=== PATIENT | male | born 1965 | race Hispanic/Latino ===

== ENCOUNTER 2016-07-23 14:25 | Inpatient (IN) | payer OTHER ==
[~2016-07-23] VITALS: Ht 177.8 cm; Wt 74.8 kg
--- NOTE | 2016-07-23 14:26 | NUR ---
PATIENT TO EKG JONAH
--- NOTE | 2016-07-23 14:32 | NUR ---
TRIAGE: 51 Y/O MALE SENT IN BY [facility] FOR C/O MIDSTERNAL CHEST PAIN 12/14 - PER URGENT CARE, EKG WAS NEGATIVE BUT HE REQUIRED ADDITIONAL WORK UP. REPORTS SLIGHT SOB AT PRESENT. DENIES ABDOMINAL PAIN. HISTORY OF INTERMITTENT CHEST PAINS, NEGATIVE STRESS TEST.
--- NOTE | 2016-07-23 14:57 | ED CARDIAC/CP/PALPITATIONS ---
History of Present Illness General Chief Complaint: Chest Pain Stated Complaint: CHEST PAIN Source: patient Exam Limitations: no limitations Allergies Coded Allergies: NO KNOWN ALLERGIES (07/23/16) Reconcile Medications Atorvastatin Calcium 40 MG TABLET 1 TAB PO DAILY CHOLESTEROL (Reported) Metformin HCl 850 MG TABLET 1 TAB PO DAILY DM (Reported) Telmisartan 20 MG TABLET 1 TAB PO DAILY HEART (Reported) Triage Note: TRIAGE: 51 Y/O MALE SENT IN BY [facility] FOR C/O MIDSTERNAL CHEST PAIN 12/14 - PER URGENT CARE, EKG WAS NEGATIVE BUT HE REQUIRED ADDITIONAL WORK UP. REPORTS SLIGHT SOB AT PRESENT. DENIES ABDOMINAL PAIN. HISTORY OF INTERMITTENT CHEST PAINS, NEGATIVE STRESS TEST. Triage Nurses Notes Reviewed? yes Onset: Abrupt Duration: constant Timing: single episode today Quality/Severity: severe, pressure Location: substernal Radiation: no radiation Activities at Onset: none Nitro Today/Relief: no nitro taken today Aspirin Today: no aspirin today HPI: Patient is a 51-year-old male with a past medical history of type 2 diabetes, hypertension and hyperlipidemia and chronic dysphasia or patient has received multiple endoscopies in the past who states that recently his dysphagia (most likely esophageal stricture) has worsened however today patient had since 6:30 AM substernal chest pain and pressure. Patient states that he was not eating or drinking or swallowing anything at that time. Patient has been able tolerate by mouth intake with no change in symptoms. Patient does state that approximately 3 years ago he received cardiac stress test with unremarkable findings. Patient is an every day smoker however denies any other illicit drug use. Patient just returned from the [facility] approximately 1 week ago. Patient denies any history of DVT or PE denies any leg swelling denies any hemoptysis fever chills nausea vomiting abdominal pain. Patient does state that the onset of his symptoms this morning he was diaphoretic however this has resolved (JOSE DAVID DELGADO) Vital Signs & Intake/Output Vital Signs & Intake/Output Vital Signs Date Time Temp Pulse Resp B/P Pulse O2 O2 Flow FiO2 Ox Delivery Rate 07/23 1751 92 14 154/94 98 Room Air Room Air 07/23 1719 98.1 97 16 141/86 98 Room Air Room Air 07/23 1621 84 136/81 07/23 1535 106 155/84 07/23 1530 97 Room Air Room Air 07/23 1525 105 149/84 07/23 1521 91 14 167/90 98 Room Air 07/23 1432 98.0 96 18 160/88 98 Room Air Room Air Past History Travel History Traveled to [place] past 21 day No Medical History Any Pertinent Medical History? see below for history Cardiovascular: hypertension, hyperlipidemia Endocrine: diabetes Influenza Vaccine: 05/31/12 Surgical History Surgical History: non-contributory Psychosocial History Who do you live with Family What is your primary language Albanian Tobacco Use: Never used Family History Hx Contributory? No (JOSE DAVID DELGADO) Review of Systems Review of Systems Constitutional: Reports: no symptoms. EENTM: Reports: no symptoms. Respiratory: Reports: see HPI. Cardiovascular: Reports: see HPI, chest pain. GI: Reports: no symptoms. Genitourinary: Reports: no symptoms. Musculoskeletal: Reports: no symptoms. Skin: Reports: no symptoms. Neurological/Psychological: Reports: no symptoms. Hematologic/Endocrine: Reports: no symptoms. Immunologic/Allergic: Reports: no symptoms. All Other Systems: Reviewed and Negative (JOSE DAVID DELGADO) Physical Exam Physical Exam General Appearance: no apparent distress, alert, comfortable Head: atraumatic Eyes: Right: normal appearance, PERRL, EOMI. Ears, Nose, Throat: normal pharynx, normal ENT inspection, hearing grossly normal Neck: normal inspection, supple Respiratory: normal breath sounds, chest non-tender, no respiratory distress Cardiovascular: regular rate/rhythm Gastrointestinal: normal bowel sounds, soft, non-tender Back: normal inspection Extremities: normal inspection, normal capillary refill, normal range of motion, no edema Skin: intact, normal color, warm/dry Lymphatic: no anterior cervical jeremy Core Measures ACS in differential dx? Yes ASA ordered for poss ACS? Yes-ordered Severe Sepsis Present: No Septic Shock Present: No (JOSE DAVID DELGADO) Progress Differential Diagnosis: AMI, aortic dissection, atrial fibrillation, cholecystitis, CHF/pulm edema, costochondritis, hyperkalemia, hypovolemia, hyperthyroid, hyperventilation, intracranial hemorrhage, musculoskeletal pain, myocarditis, pancreatitis, pericarditis, pneumonia, pneumothorax, PSVT, pulmonary embolism, PUD/GERD, PVCs/PACs, respiratory failure, sepsis, unstable angina, V-fib/V-Tach, WPW syndrome Diagnostic Imaging: Viewed by Me: Radiology Read. CXR Impression: no acute abnormality, no infiltrates Initial ED EKG: SINUS RHYTHM NOTED AT 83 BEATS PER MINUTE lvh Comments: PATIENT: MELISSA GONZALEZ PRESENT AGE: 51 PATIENT ACCOUNT NO: [id number] : 66 LOCATION: [facility] ORDERING PHYSICIAN: JOSE DAVID LLAMAS SERVICE DATE: 07/23/16 EXAM TYPE: CAT - CTA CHEST-AORTIC DISSECTION EXAMINATION: CTA CHEST WITH CONTRAST CLINICAL INFORMATION: Chest pain. Assess for dissection. COMPARISON: None TECHNIQUE: Multidetector CT scan of the chest performed following uneventful injection of 120 mL of Optiray 350. Multiplanar reconstructions including MIP imaging. DLP: 776 mGy-cm FINDINGS: No pulmonary nodules or masses. No parenchymal disease. No pleural or pericardial abnormality. On the nonenhanced study, the thoracic aorta is normal. There is moderate coronary atherosclerosis. No evidence for an intramural hematoma. Following enhancement, there is normal opacification of the aorta. There is no evidence for any dissection or penetrating atherosclerotic ulcer of the aorta. There is some flow-related artifact at the origin of the innominate artery. No mediastinal mass or hematoma. Pulmonary arteries are normal. There is no evidence of any right ventricular strain. Moderate gynecomastia. Diffuse changes of hepatic steatosis. No focal lesion. Nonspecific thickening of the distal esophagus noted circumferentially. IMPRESSION: 1. No evidence for any dissection, aneurysm, or acute aortic pathology. 2. Diffuse hepatic steatosis. 3. Thickening of the distal esophagus which may be on the basis of esophagitis. Correlate clinically. 4. Relatively pronounced coronary atherosclerosis. DICTATED BY: DAYTON ROMAN MD DATE/TIME DICTATED:07/23/161753 ROLLER MAN:MELODIE PATIENT: MELISSA GONZALEZ PRESENT AGE: 51 PATIENT ACCOUNT NO: [id number] : 66 LOCATION: [facility] ORDERING PHYSICIAN: JOSE DAVID LLAMAS SERVICE DATE: 07/23/16163 EXAM TYPE: RAD - XRY-CHEST XRAY, PA AND LATERAL EXAMINATION: XR CHEST CLINICAL INFORMATION: Chest pain. COMPARISON: None TECHNIQUE: 2 views of the chest were obtained. FINDINGS: No significant abnormality is noted involving the heart, lungs, mediastinum, bony thorax or soft tissues. IMPRESSION: Unremarkable examination. (RAHEEM LLAMAS,JOSE DAVID) Plan of Care: Orders Procedure Date/time Status Heart Healthy Diet 07/24 D Active Nothing by Mouth 07/24 B Active Saline Lock 07/[address] in observation 07/23 1913 Active Misc Message 07/23 1913 Active ED Holding Orders 07/23 1913 Active Patient Data 07/23 1913 Active Vital Signs 07/23 1913 Active Code Status 07/23 1913 Active Telemetry/Gusset Maker 07/23 1513 Active TROPONIN LEVEL 07/23 151 Complete D-DIMER 07/23 151 Complete COMPREHENSIVE METABOLIC PANEL 07/23 151 Complete CBC WITHOUT DIFFERENTIAL 07/23 151 Complete EKG 07/23 1426 Active Laboratory Tests 07/23/16 1604: Anion Gap 9, Estimated GFR > 60, BUN/Creatinine Ratio 16.0, Glucose 143 H, Calcium 9.7, Total Bilirubin 0.6, AST 27, ALT 58, Alkaline Phosphatase 65, Troponin I < 0.01, Total Protein 6.9, Albumin 4.1, Globulin 2.8, Albumin/ Globulin Ratio 1.5 07/23/16 1521: D-Dimer < 200, CBC w Diff NO MAN DIFF REQ, RBC 4.77, MCV 94.6 H, MCH 31.9 H, RDW 12.9, MPV 7.3 L, Gran % 67.2, Lymphocytes % 18.5 L, Monocytes % 12.8 H, Eosinophils % 1.5, Basophils % 0 L, Absolute Granulocytes 6.1, Absolute Lymphocytes 1.7, Absolute Monocytes 1.2 H, Absolute Eosinophils 0.1, Absolute Basophils 0, PUBS MCHC 33.7 Patient currently is in no apparent distress however is complaining of substernal 8 out of 10 chest heaviness. Patient's EKG was normal sinus rhythm patient was given 2 doses of sublingual nitroglycerin however he had no change in symptoms. D-dimer currently is pending patient plan will be to receive second set of troponin 07/23/2016 5:04:31 PM patient still resting comfortably however he states he has no change in symptoms. D-dimer was unremarkable. Nitroglycerin placed was administered 07/23/2016 5:19:01 PM patient had no change in symptoms with multiple nitroglycerin which morphine was then administered Patient had no change of symptoms after drinking fluid and I do not suspect patient have substernal pressure and pain from HIS ESOPHAGAEL HISTORY Patient did have morphine which improved his symptoms however currently is noted to be substernal pressure 3 out of 10. Discussed admission with Dr. Streeter who agrees with telemetry observation Discussed disposition and plan and was initially patient and family were hesitant however then agreed for admission. Discussed admission with Dr. Esqueda who evaluated patient and agrees (JOSE DAVID DELGADO) Departure Departure Disposition: STILL A PATIENT Condition: Stable Clinical Impression Primary Impression: Chest pain Referrals: JEFFREY VALDIVIA,ROVERTO Monroy (PCP/Family) Departure Forms: Customer Survey General Discharge Information Observation Note Spoke With: ALISTAIR VALDIVIA PhD,MARIA ESTHER Isidro Physician Advisor Notified: BROOKLYNN VALDIVIA,SANJAY Monroy Place Patient In: Non-ED OBS Care Area Rationale for Observation: My rational for observation is as follows [discussed patient with Dr. Streeter who agrees with telemetry observation was patient has multiple risk factors and chest pain. Patient requires cardiology consultation, telemetry observation repeat labs repeat EKG.]. (JOSE DAVID DELGADO) PA/ELEMENTARY SCHOOL PROFESSIONAL Co-Sign Statement Statement: ED Attending supervision documentation- [x] I saw and evaluated the patient. I have also reviewed all the pertinent lab results and diagnostic results. I agree with the findings and the plan of care as documented in the PA's/ELEMENTARY SCHOOL PROFESSIONAL's documentation. [] I have reviewed the ED Record and agree with the PA's/ELEMENTARY SCHOOL PROFESSIONAL's documentation. [] Additions or exceptions (if any) to the PAs/ELEMENTARY SCHOOL PROFESSIONAL's note and plan are summarized below: [] (GONZALO VALDIVIA,ROSI Cummings) Critical Care Note Critical Care Note Critical Care Time: 30-74 min (JOSE DAVID DELGADO)
--- NOTE | 2016-07-23 15:20 | NUR ---
FIRST NITRO GIVEN, C/O PRESSURE MID STERNUM 7/10 ON PAIN SCALE
[2016-07-23] MEDS ORDERED: METFORMIN HCL850 M1 PO (15:22)
[2016-07-23] MEDS ORDERED: ATORVASTATIN CA40 M1 PO (15:22)
[2016-07-23] MEDS ORDERED: TELMISARTAN PO (15:23)
--- NOTE | 2016-07-23 15:28 | NUR ---
second nitro administered at this time as per MURIEL Chandler's instruction. BP 148/84. Midsternal chest pressure remains 7/10. Will continue to monitor.
[2016-07-23 15:37] LABS: ABSOLUTE BASOPHIL COUNT 0 /CUMM (0.0-0.2); ABSOLUTE EOSINOPHIL COUNT 0.1 /CUMM (0.0-0.7); ABSOLUTE GRANULOCYTE CT 6.1 /CUMM (1.4-6.5); ABSOLUTE LYMPH COUNT 1.7 /CUMM (1.2-3.4); ABSOLUTE MONOCYTE COUNT 1.2 /CUMM (0.10-0.60); BASOPHIL % 0 % (0.0-2.0); EOSINOPHIL % 1.5 % (0-5); GRANULOCYTE % 67.2 % (42.2-75.2); HEMATOCRIT 45.1 % (42-52); MEAN CORPUSCULAR HGB 31.9 PG (27.0-31.0); MEAN CORPUSCULAR HGB CONC 33.7 G/DL (33.0-37.0); MEAN CORPUSCULAR VOLUME 94.6 FL (80.0-94.0); MEAN PLATELET VOLUME 7.3 FL (7.4-10.4); PLATELET COUNT 167 /CUMM (130-400); RBC DISTRIBUTION WIDTH 12.9 % (11.5-14.5); RED BLOOD CELL CT 4.77 /CUMM (4.70-6.10); WHITE BLOOD CELL COUNT 9.1 /CUMM (4.8-10.8)
--- NOTE | 2016-07-23 15:53 | NUR ---
LAB CALLED AND NEEDS A REDRAW OF THE SST. MST NOTIFIED.
--- NOTE | 2016-07-23 16:06 | NUR ---
SST REDRAWN AND SENT BY THIS MST
--- NOTE | 2016-07-23 17:01 | RADIOLOGY REPORT ---
EXAMINATION: XR CHEST CLINICAL INFORMATION: Chest pain. COMPARISON: None TECHNIQUE: 2 views of the chest were obtained. FINDINGS: No significant abnormality is noted involving the heart, lungs, mediastinum, bony thorax or soft tissues. IMPRESSION: Unremarkable examination.
--- NOTE | 2016-07-23 17:03 | NUR ---
pt continues to c/o chest pressure 7/10. 1g nitropaste applied to chest at this time as per emar. patient remains sinus rhythm on monitor. will continue to monitor patient for symptoms. family remains at bedside for emotional support.
--- NOTE | 2016-07-23 17:50 | NUR ---
PATIENT TO AND FROM CT SCAN AT THIS TIME. RETURNED TO CARDIAC MONTIOR. BP 154/94. HEART RATE 90. NITROPASTE REMAINS ON CHEST. PT REPORTS THAT CHEST PRESSURE REMAINS 7/10, UNCHANGED.
--- NOTE | 2016-07-23 18:25 | CT SCAN REPORT ---
EXAMINATION: CTA CHEST WITH CONTRAST CLINICAL INFORMATION: Chest pain. Assess for dissection. COMPARISON: None TECHNIQUE: Multidetector CT scan of the chest performed following uneventful injection of 120 mL of Optiray 350. Multiplanar reconstructions including MIP imaging. DLP: 776 mGy-cm FINDINGS: No pulmonary nodules or masses. No parenchymal disease. No pleural or pericardial abnormality. On the nonenhanced study, the thoracic aorta is normal. There is moderate coronary atherosclerosis. No evidence for an intramural hematoma. Following enhancement, there is normal opacification of the aorta. There is no evidence for any dissection or penetrating atherosclerotic ulcer of the aorta. There is some flow-related artifact at the origin of the innominate artery. No mediastinal mass or hematoma. Pulmonary arteries are normal. There is no evidence of any right ventricular strain. Moderate gynecomastia. Diffuse changes of hepatic steatosis. No focal lesion. Nonspecific thickening of the distal esophagus noted circumferentially. IMPRESSION: 1. No evidence for any dissection, aneurysm, or acute aortic pathology. 2. Diffuse hepatic steatosis. 3. Thickening of the distal esophagus which may be on the basis of esophagitis. Correlate clinically. 4. Relatively pronounced coronary atherosclerosis.
--- NOTE | 2016-07-23 18:56 | NUR ---
PT REPORTING MILD RELIEF OF PAIN TO A 3/10. PA RAHEEM AT BEDSIDE TO DISCUSS POC
--- NOTE | 2016-07-23 19:14 | NUR ---
PENDING ADMISSION. NURSING [facility] CALLED FOR BOXED LUNCH
--- NOTE | 2016-07-23 19:32 | NUR ---
PT'S FAMILY PROVIDED PT WITH DINNER FROM [facility]
--- NOTE | 2016-07-23 20:00 | NUR ---
PT REQUESTED TO AMBULATE TO RESTROOM TO VOID. PT INFORMED THAT USING URINAL WOULD BE SAFER AT THIS TIME. PT STOOD TO USE URINAL. PT'S HEART RATE INCREASED FROM 105 TO 121. PT COMPLAINED OF MILD DYSPNEA ON EXERTION WHEN STANDING.
--- NOTE | 2016-07-23 20:10 | History & Physical ---
JANNETTE CENTENO MD 07/23/162009: General Information and HPI MD Statement: I have seen and personally examined MELISSA SIMON and documented this H&P. The patient is a 51 year old M who presented with a patient stated chief complaint of chest pain. Source of Information: patient, family, old records Exam Limitations: no limitations History of Present Illness: Mr. Simon is a pleasant 51 year old gentleman with PMH type 2 diabetes mellitus on metformin, HTN, HLD, chronic dysphagia s/p dilatation in 2013, history of treated sho esophagitis, treated H. Pylori infection and tobacco abuse who presents with chief complaint of chest pain. Patient reports that this morning he was watching TV and suddenly developed mild chest pain. This chest pain continued to increase in intensity throughout the morning and promted him to present to an urgent care facility aroud 1 PM this afternoon. The pain at this time was rated an 8/10, substernal, non-radiating and described as a pressure. He reported a similar episode of chest pain about three years ago at which time he had a stress test performed. Following the stress test, patient reports he was started on a blood thinner which he has since been taken off of; he does not know the exact results of the test. Patient was transferred from the urgent care facility to [facility] for further workup at which time he received 2 sublingual nitroglycerin that did not decrease the pain followed by a nitro patch which helped slightly. Associated symptoms include shortness of breath and diaphoresis. Of note, patient has recently returned from a trip to the [facility] and subsequently noted a return of his dysphagia that occurs only on drinking liquids. The chest pain he experiences is different in nature from the dysphagia symptoms. Social history is significant for tobacco abuse since the age of 19 with 1/2 pack per day. He drinks about 2 Michelob Ultras a day. He denies illicit drug use. He lives at home with his . His trouble shooting mechanic is Dr. Grubbs in [place]. The last endoscopy he had was in 2013 at which time patient reports he had a dilatation of his stricture and has been dysphagia free since that time until his return from the [facility]. Allergies/Medications Allergies: Coded Allergies: NO KNOWN ALLERGIES (07/23/16) Home Med list Atorvastatin Calcium 40 MG TABLET 1 TAB PO DAILY CHOLESTEROL (Reported) Metformin HCl 850 MG TABLET 1 TAB PO DAILY DM (Reported) Telmisartan 20 MG TABLET 1 TAB PO DAILY HEART (Reported) Compliance With Home Meds: GOOD Past History Travel History Traveled to [place] past 21 day No Medical History Cardiovascular: hypertension, hyperlipidemia Gastrointestinal: Chronic dysphagia Endocrine: diabetes Influenza Vaccine: 05/31/12 Surgical History Surgical History: non-contributory Past Family/Social History Psychosocial History Where do you live? Home Who Do You Live With? spouse Services at Home: None Smoking Status: Current Everyday Smoker ETOH Use: occasional use Illicit Drug Use: denies illicit drug use Living Will? no Functional Ability ADLs Independent: dressing, eating, toileting, bathing. Ambulation: independent IADLs Independent: shopping, housework, finances, food prep, telephone, transportation , medication admin. 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 Denies: chills, fever, malaise, weakness. EENTM: Denies: blurred vision, visual changes, hearing changes, nasal congestion. Cardiovascular: Reports: chest pain. Denies: edema, orthopena, palpitations, peripheral edema, syncope. Respiratory: Reports: short of breath. Denies: cough, sputum production, wheezing. GI: Denies: abdominal pain, nausea, vomiting. Genitourinary: Denies: dysuria, hematuria. Musculoskeletal: Denies: back pain, joint pain. Skin: Denies: erythema, rash. Neurological/Psychological: Denies: confusion, headache, paresthesia. Hematologic/Endocrine: Denies: bruising, bleeding. Immunologic/Allergic: Denies: splenectomy. Exam & Diagnostic Data Last 24 Hrs of Vital Signs/I&O Vital Signs Date Time Temp Pulse Resp B/P Pulse O2 O2 Flow FiO2 Ox Delivery Rate 07/23 2232 97.8 96 16 135/73 07/23 2224 97.8 96 16 135/73 95 Room Air 07/23 1959 105 16 132/84 98 Room Air 07/23 1751 92 14 154/94 98 Room Air Room Air 07/23 1719 98.1 97 16 141/86 98 Room Air Room Air 07/23 1621 84 136/81 07/23 1535 106 155/84 07/23 1530 97 Room Air Room Air 07/23 1525 105 149/84 07/23 1521 91 14 167/90 98 Room Air 07/23 1432 98.0 96 18 160/88 98 Room Air Room Air Intake & Output 07/23 1600 07/23 0800 07/23 0000 Intake Total Output Total Balance Patient 165 lb Weight Physical Exam General Appearance Alert, Oriented X3, Cooperative, No Acute Distress Skin No Rashes, No Significant Lesion HEENT Atraumatic, PERRLA, EOMI, Mucous Membr. moist/pink Neck Supple, +2 Carotid Pulse wo Bruit Lymphatic Cervical nl Cardiovascular Normal S1, Normal S2, No Murmurs, Tachycardic Lungs Clear to Auscultation, Normal Air Movement Abdomen Normal Bowel Sounds, Soft, No Tenderness, No Hepatospenomegaly, No Masses Neurological Normal Speech, Strength at 5/5 X4 Ext, Normal Tone Extremities No Clubbing, No Cyanosis, No Edema, No Tenderness/Swelling Vascular Pulses Symmetrical Last 24 Hrs of Labs/Jose C: Laboratory Tests 07/23/16 2224: Troponin I Pending 07/23/16 1604: Anion Gap 9, Estimated GFR > 60, BUN/Creatinine Ratio 16.0, Glucose 143 H, Calcium 9.7, Total Bilirubin 0.6, AST 27, ALT 58, Alkaline Phosphatase 65, Troponin I < 0.01, Total Protein 6.9, Albumin 4.1, Globulin 2.8, Albumin/ Globulin Ratio 1.5 07/23/16 1521: D-Dimer < 200, CBC w Diff NO MAN DIFF REQ, RBC 4.77, MCV 94.6 H, MCH 31.9 H, RDW 12.9, MPV 7.3 L, Gran % 67.2, Lymphocytes % 18.5 L, Monocytes % 12.8 H, Eosinophils % 1.5, Basophils % 0 L, Absolute Granulocytes 6.1, Absolute Lymphocytes 1.7, Absolute Monocytes 1.2 H, Absolute Eosinophils 0.1, Absolute Basophils 0, PUBS MCHC 33.7 Diagnostic Data EKG Results NSR HR 83, QTC 409, T wave inversions in III, aVF. Likely early repolarization in V2-V4. CXR Results IMPRESSION: Unremarkable examination. Other Results Chest CTA: IMPRESSION: 1. No evidence for any dissection, aneurysm, or acute aortic pathology. 2. Diffuse hepatic steatosis. 3. Thickening of the distal esophagus which may be on the basis of esophagitis. Correlate clinically. 4. Relatively pronounced coronary atherosclerosis. Assessment/Plan Assessment: Mr. Simon is a pleasant 51 year old gentleman with PMH type 2 diabetes mellitus on metformin, HTN, HLD, chronic dysphagia s/p dilatation in 2013, history of treated sho esophagitis, treated H. Pylori infection and tobacco abuse who presents with chief complaint of substernal chest pain. This chest pain started earlier this morning, increased in intensity to reach a maximum of 8/10 pain that was described as a pressure. This pain did not radiate but was associated with diaphoresis and shortness of breath; it was minimally improved with nitrogylcerin. In the ED: Vital signs showed T 98.1, HR 97, RR 16, BP 141/86 and O2 saturation of 98% on room air. CBC was unremarkable. BEP was significant for Na 134, BUN 8, Cre 0.5, Glu 143, trop <0.01, normal AST/ALT and DDimer <200. CXR was unremarkable. CTA showed no dissection, aneurysm, or acute aortic pathology. Diffuse hepatic steatosis. Thickening of distalesophagus which may represent esophagitis. Coronary atherosclerosis. EKG showed NSR HR 83, QTC 409, T wave inversions in III, aVF. Likely early repolarization in V2-V4. Patient is admitted to the telemetry floor and the following is the management: 1. Chest pain, rule out ACS * Patient given aspirin 325 mg PO and nitroglycerin in the emergency room * Continuous telemetry monitoring * First troponin <0.01, EKG did show early repolarization in V2-V4 and T wave inversion III, aVF. * DDimer low, PE unlikely * NPO tonight for possible stress test tomorrow * Echocardiogram ordered, follow up results * Hold off on nitrogylcerin for now * Follow up cardiology recommendations * IV morphine for severe pain, tylenol for mild 2. Diabetes mellitus * Hold metformin * Accuchecks TIDAC/HS * Novolog sliding scale 3. HTN, HLD * Losartan 50 mg PO daily * Lipitor 40 mg PO daily 4. Tobacco abuse * Patient counseled on tobacco cessation * Hold off on nicotine patch for now in setting of rule out ACS FULL CODE DVTP: SC Lovenox Mild to severe pain pathway Heart Healthy Diet As Ranked By This Provider Problem List: 1. Chest pain 2. HTN (hypertension) 3. HLD (hyperlipidemia) 4. Type 2 diabetes mellitus Core Measures/Miscellaneous Acute Coronary Syndrome ACS Diagnosis: No Cerebrovascular Accident CVA/TIA Diagnosis: No Congestive Heart Failure CHF Diagnosis: No Venous Thromboembolism VTE Risk Factors: Acute medical illness, Age > 40, Smoking [facility] prophylaxis d/t: No contraindications No VTE Pharm Prophylaxis d/t: No contraindications VTE Diagnosis: No VTE Type: NONE VTE Confirmed by (Test): NONE Severe Sepsis Severe Sepsis Present: No Septic Shock Septic Shock Present: No Miscellaneous Documentation Attending Case Discussed With: ALISTAIR VALDIVIA PhD,MARIA ESTHER Isidro Primary Care Physician: ROVERTO MURPHY MD Patient sees these Specialists WILL[facility] Rene [place]. Level of Patient Care: Telemetry SHAHRZAD VALDIVIA,[facility] 07/23/16 2303: Resident Review Statement Resident Statement: examined this patient, discussed with internal combustion engine subassembler, agreed with internal combustion engine subassembler Other Findings: 51 y/o M with PMH of HTN, HLD, DMT2, longstanding esophagitis 2/2 GERD s/p several endoscopies (last in 2013 s/p dilatation of lower esophageal stricture) who presents to the ED with chest pain since 630AM this morning. He recently came back from a vacation to the [facility]. He reports having substernal chest pain 8/10 since this AM. He thought this could be related to his esophagitis and he drank some water, which did not help with his pain. He went to [facility] at noon. EKG done was found to be abnormal and the patient was sent to the ED for further management. He reports having a similar episode 3 years ago, for which he went to a PCP. He was asked to see a membership counselor and underwent a stress test which was reportedly negative. Vitals: Stable Labs: Stable. Trop x 1 negative Imaging: CXR WNL, CTA negative for PE, shows extensive coronary atherosclerosis EKG: Early repolarization changes in V2,V3 Problem List: Chest pain 2/2 Esophagitis vs ACS Hypertension Hyperlipidemia Diabetes Plan: * Admit to telemetry * Check trops and EKG x 3 * Continue other home medications except Metformin * Fingersticks and Novolog sliding scale * ECHO * Possible Stress test in the AM * DVT PPx: SubQ lovenox * Pain Pathway: Tylenol PRN * Code Status: Full Code
--- NOTE | 2016-07-23 21:27 | NUR ---
HOUSE STAFF AT BEDSIDE FOR EVAL
--- NOTE | 2016-07-23 22:26 | NUR ---
REPEAT TROPONIN DRAWN AND SENT BY THIS [facility]
--- NOTE | 2016-07-23 22:53 | NUR ---
PT MEDICATED WITH COZAAR 50MG, LIPITOR 40MG, AND TYLENOL 650MG PO
--- NOTE | 2016-07-23 23:09 | NUR ---
FINGERSTICK GLUCOSE LEVEL READING 204
--- NOTE | 2016-07-23 23:12 | NUR ---
REPORT CALLED TO DAGOBERTO WORTHY. PT ASSIGNED TO ROOM [id number]
--- NOTE | 2016-07-23 23:38 | NUR ---
PT TRANSPORTED TO FLOOR BY THIS RN AND PRINCE BENNETT WITHOUT INCIDENT
[2016-07-23 23:45] VITALS: BP 138/84
[2016-07-24 05:01] LABS: ABSOLUTE BASOPHIL COUNT 0 /CUMM (0.0-0.2); ABSOLUTE EOSINOPHIL COUNT 0.2 /CUMM (0.0-0.7); ABSOLUTE GRANULOCYTE CT 6.6 /CUMM (1.4-6.5); ABSOLUTE LYMPH COUNT 2.1 /CUMM (1.2-3.4); ABSOLUTE MONOCYTE COUNT 1.1 /CUMM (0.10-0.60); BASOPHIL % 0.1 % (0.0-2.0); GRANULOCYTE % 65.4 % (42.2-75.2); MEAN CORPUSCULAR HGB CONC 33.7 G/DL (33.0-37.0); MEAN CORPUSCULAR VOLUME 94.7 FL (80.0-94.0); MEAN PLATELET VOLUME 8.1 FL (7.4-10.4); PLATELET COUNT 151 /CUMM (130-400); RBC DISTRIBUTION WIDTH 12.7 % (11.5-14.5); RED BLOOD CELL CT 4.54 /CUMM (4.70-6.10)
[2016-07-24 07:00] VITALS: BP 142/80
--- NOTE | 2016-07-24 07:26 | PN- Housestaff ---
Subjective Follow-up For: Chest pain Hiccups Complaints: Continoues to have epigastric and chest pain Tele-Events Since Last Visit: Sinus rhythm 72 to 77 bpm no overnight events Subjective: Reviewed the patient lying comfortably on the bed he reports to continue to have chest pain overnight. He has been having a lot of hiccups and is strongly think that the pain is more associated with his esophagus rather than his heart. He denies any palpitation or shortness of breath Review of Systems Constitutional: Denies: chills, fever. Cardiovascular: Reports: see HPI, chest pain. Denies: palpitations. Respiratory: Denies: cough, short of breath. Gastrointestinal: Reports: nausea (repetitive hiccups). Genitourinary: Denies: no symptoms. Musculoskeletal: Denies: no symptoms. Skin: Reports: dryness. Objective Last 24 Hrs of Vital Signs/I&O Vital Signs Date Time Temp Pulse Resp B/P Pulse O2 O2 Flow FiO2 Ox Delivery Rate 07/24 0800 Room Air 07/24 0700 98.7 76 16 142/80 98 Room Air 07/23 2345 98.8 79 18 138/84 97 Room Air 07/23 2330 Room Air 07/23 2253 97.8 07/23 2232 97.8 96 16 135/73 07/23 2224 97.8 96 16 135/73 95 Room Air 07/23 1959 105 16 132/84 98 Room Air 07/23 1751 92 14 154/94 98 Room Air Room Air 07/23 1719 98.1 97 16 141/86 98 Room Air Room Air 07/23 1621 84 136/81 07/23 1535 106 155/84 07/23 1530 97 Room Air Room Air 07/23 1525 105 149/84 07/23 1521 91 14 167/90 98 Room Air 07/23 1432 98.0 96 18 160/88 98 Room Air Room Air Intake & Output 07/24 1600 07/24 0800 07/24 0000 Intake Total 0 Output Total Balance 0 Intake, IV 0 Intake, Oral 0 Number 0 Bowel Movements Patient 165 lb Weight Physical Exam General Appearance: Alert, Oriented X3, Cooperative, No Acute Distress Skin: No Rashes HEENT: Atraumatic, Mucous Membr. moist/pink Neck: Supple, No JVD Cardiovascular: Regular Rate, Normal S1, Normal S2, No Murmurs Lungs: Clear to Auscultation, Normal Air Movement Abdomen: Normal Bowel Sounds, Soft, No Tenderness Neurological: Normal Speech, Normal Tone Extremities: No Clubbing, No Cyanosis, No Edema Current Medications: Current Medications Sig/[place] Start time Last Medication Dose Route Stop Time Status Admin Acetaminophen 0 .STK-MED ONE 07/23 2242 DC PO Acetaminophen 650 MG Q6P PRN 07/23 2200 AC 07/24 PO 1110 Aspirin 325 MG ONCE ONE 07/23 1545 DC 07/23 PO 07/23 1546 1538 Aspirin 0 .STK-MED ONE 07/23 1539 DC PO Atorvastatin Calcium 40 MG DAILY 07/23 2153 AC 07/24 PO 1109 Calcium 600 MG ONCE ONE 07/24 0430 DC 07/24 PO 07/24 0431 0430 Enoxaparin Sodium 40 MG DAILY 07/24 1000 AC 07/24 SC 1111 Insulin Aspart 0 TIDAC 07/24 0800 AC SC Losartan Potassium 0 .STK-MED ONE 07/23 2210 DC PO Losartan Potassium 50 MG DAILY 07/23 2153 AC 07/23 PO 2232 Morphine Sulfate 2 MG Q8P PRN 07/23 220 AC IV Morphine Sulfate 2 MG ONCE ONE 07/23 1730 DC 07/23 IV 07/23 1731 1735 Morphine Sulfate 0 .STK-MED ONE 07/23 1724 DC .ROUTE Nitroglycerin 0 .STK-MED ONE 07/23 2208 DC TOP Nitroglycerin 0.5 GM Q8 07/23 2199 DC TOP Nitroglycerin 0 .STK-MED ONE 07/23 1700 DC TOP Nitroglycerin 1 GM ONCE ONE 07/23 1645 DC 07/23 TOP 07/23 1646 1706 Nitroglycerin 0.4 MG ONCE ONE 07/23 1530 DC 07/23 SL 07/23 1531 1528 Nitroglycerin 0 .STK-MED ONE 07/23 1518 DC SL Nitroglycerin 0.4 MG ONCE ONE 07/23 1515 DC 07/23 SL 07/23 1516 1520 Ondansetron HCl 4 MG ONCE ONE 07/24 0045 DC 07/24 IV 07/24 0046 0103 Patient Medication 1 UNIT ONE NR 07/23 2199 DC Teaching ED 07/23 2300 Patient Medication 1 UNIT ONE NR 07/23 2199 PA Teaching ED 07/23 2230 Patient Medication 1 UNIT ONE NR 07/23 2199 [facility] ED 07/23 2229 Last 24 Hrs of Lab/Jose C Results Last 24 Hrs of Labs/Mics: Laboratory Tests 07/24/16 0410: Troponin I 0.01 07/24/16 0410: Anion Gap 8, Estimated GFR > 60, BUN/Creatinine Ratio 10.0, CBC w Diff NO MAN DIFF REQ, RBC 4.54 L, MCV 94.7 H, MCH 32.0 H, RDW 12.7, MPV 8.1, Gran % 65.4, Lymphocytes % 21.1, Monocytes % 11.4 H, Eosinophils % 2.0, Basophils % 0.1, Absolute Granulocytes 6.6 H, Absolute Lymphocytes 2.1, Absolute Monocytes 1.1 H, Absolute Eosinophils 0.2, Absolute Basophils 0, PUBS MCHC 33.7 07/23/16 2224: Troponin I < 0.01 07/23/16 1604: Anion Gap 9, Estimated GFR > 60, BUN/Creatinine Ratio 16.0, Glucose 143 H, Calcium 9.7, Total Bilirubin 0.6, AST 27, ALT 58, Alkaline Phosphatase 65, Troponin I < 0.01, Total Protein 6.9, Albumin 4.1, Globulin 2.8, Albumin/ Globulin Ratio 1.5 07/23/16 1521: D-Dimer < 200, CBC w Diff NO MAN DIFF REQ, RBC 4.77, MCV 94.6 H, MCH 31.9 H, RDW 12.9, MPV 7.3 L, Gran % 67.2, Lymphocytes % 18.5 L, Monocytes % 12.8 H, Eosinophils % 1.5, Basophils % 0 L, Absolute Granulocytes 6.1, Absolute Lymphocytes 1.7, Absolute Monocytes 1.2 H, Absolute Eosinophils 0.1, Absolute Basophils 0, PUBS MCHC 33.7 Assessment/Plan Assessment: 51 y/o M with PMH of HTN, HLD, DMT2, longstanding esophagitis 2/2 GERD s/p several endoscopies (last in 2014 s/p dilatation of lower esophageal stricture) who presents to the ED with chest pain since 630AM the day of admission. He reports having a similar episode 3 years ago, for which he went to a PCP. He was asked to see a tick eradicator and underwent a stress test which was reportedly negative. Chest pain 2/2 Esophagitis vs ACS Patient has had 3 troponins which has been negative and there is no acute EKG changes says just ACS. Patient is still nothing by mouth for possible stress test today, postponed and possible stress test as an outpatient post discharge. Will have an echocardiogram Will benefit from GI review for possibility of the pain being associated with esophageal pathology. Consult placed with Dr Clemons we will F/U recommendations Hypertension Patient has history of hypertension Started on home medication losartan 50 mg daily Overnight patient blood pressure has remained stable with systolic to 130 to 140 /80 Hyperlipidemia Patient has history of hyperlipidemia currently the patient is nothing by mouth when he starts taking his meals and give him heart health diet with low fats. Diabetes Patient started on insulin sliding scale Will be put back on home dose of metformin upon discharge. Problem List: 1. Type 2 diabetes mellitus 2. HLD (hyperlipidemia) 3. HTN (hypertension) 4. Chest pain Pain Ratin Pain Location: Chest Pain Goal: Pain 4 or less Pain Plan: Pain management medication for mild/moderate and severe Tomorrow's Labs & Rationales: None DVT/Prophylaxis: mechanical, pharmacological
--- NOTE | 2016-07-24 13:51 | Cons- Gastroenterology ---
DEBBIE TUCKER 07/24/16 1351: General Information and HPI Consulting Request Date of Consult: 07/24/16 Requested By: ALISTAIR VALDIVIA PhD,MARIA ESTHER Isidro Reason for Consult: Difficulty swallowing Substernal chest pain Source of Information: patient, family Exam Limitations: no limitations History of Present Illness: Mr. Simon is a 51-year-old gentleman with a PMH of type 2 DM, HTN, HLD, dysphagia with prior workup and imaging who presented with complaints of two- week duration pain with swallowing liquids and epigastric discomfort. He was first seen in 2005 with complaints of dysphagia, underwent an EGD on 12/24 that showed proximal web/distal esophageal ring and circumferential erythema at 35 cm (segmental esophagitis), discharged home on a short course of Carafate and AcipHex. He was again evaluated on 05/26/2009 with similar complaints, underwent an EGD that showed white plaque in line with Sho esophagitis, erosive gastritis/ duodenitis. Biopsies showed positive H. pylori for which she completed a course of antibiotics and was maintained on omeprazole. The patient returned on 08/06/2009 with recurrence of symptoms, underwent a repeat EGD that showed linear burrows in the lower esophagus consistent with eosinophilic esophagitis. Biopsies however returned negative for malignancy and eosinophilia. Postdischarge recommendations were for a follow-up manometry which he does report was performed at [facility] (results unavailable at this time). Over the past 2 weeks he reports intermittent nearly daily episodes of substernal/epigastric burning sensation associated with drinking cold beverages, lasting a few seconds. On Sunday he experienced more severe epigastric/ substernal discomfort, 8/10, nonradiating, no relief with Tums and sublingual NTG that lasted until arrival in the ED. Symptoms subsided S/P nitroglycerin patch. ROS: (+) Intermittent episodes of nausea over the past 2 weeks, dry cough mainly in the evening. (-) Fevers, chills, sore throat, metallic taste in his mouth, difficulty initiating swallowing, choking, abdominal pain/cramping, diarrhea/ bloody/black stools, fevers or chills. Patient is a daily smoker for the past 34 years, 0.5-1 pack per week. Daily alcohol use of 2 beers on average. 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 VS on admission: BP 160/88, HR 96, RR 18, SPO2 98% on RA, T 98.0 Pertinent labs on admission: WBC 9.8, H&H 15.2/45.1, platelets 167, potassium 4.1, chloride 99, bicarbonate 27 CXR: Unremarkable CTA chest: Hepatic steatosis. Thickening of distal esophagus. Coronary atherosclerosis Cardiac workup thus far has been negative. Allergies/Medications Allergies: Coded Allergies: NO KNOWN ALLERGIES (07/23/16) Home Med List: Atorvastatin Calcium 40 MG TABLET 1 TAB PO DAILY CHOLESTEROL (Reported) Metformin HCl 850 MG TABLET 1 TAB PO DAILY DM (Reported) Telmisartan 20 MG TABLET 1 TAB PO DAILY HEART (Reported) Past History Travel History Traveled to [place] past 21 day No Medical History Blood Transfusion Hx: No Neurological: NONE EENT: NONE Cardiovascular: hypertension, hyperlipidemia Respiratory: NONE Gastrointestinal: Chronic dysphagia Hepatic: NONE Renal: NONE Musculoskeletal: NONE Psychiatric: NONE Endocrine: diabetes Blood Disorders: NONE Cancer(s): NONE 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 Home Who Do You Live With? spouse Services at Home: None Smoking Status: Current Everyday Smoker ETOH Use: occasional use Illicit Drug Use: denies illicit drug use Living Will? no Functional Ability ADLs Independent: dressing, eating, toileting, bathing. Ambulation: independent IADLs Independent: shopping, housework, finances, food prep, telephone, transportation , medication admin. 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 EENTM: Reports: no symptoms. Cardiovascular: Reports: see HPI. Respiratory: Reports: see HPI. GI: Reports: see HPI. Genitourinary: Reports: no symptoms. Musculoskeletal: Reports: no symptoms. Skin: Reports: no symptoms. Neurological/Psychological: Reports: see HPI. Exam & Diagnostic Data Vital Signs and I&O Vital Signs Date Time Temp Pulse Resp B/P Pulse O2 O2 Flow FiO2 Ox Delivery Rate 07/24 0800 Room Air 07/24 0700 98.7 76 16 142/80 98 Room Air 07/23 2345 98.8 79 18 138/84 97 Room Air 07/23 2330 Room Air 07/23 2253 97.8 07/232 97.8 96 16 135/73 07/23 2224 97.8 96 16 135/73 95 Room Air 07/23 1959 105 16 132/84 98 Room Air 07/23 1751 92 14 154/94 98 Room Air Room Air 07/23 1719 98.1 97 16 141/86 98 Room Air Room Air 07/23 1621 84 136/81 Intake & Output 07/24 0400 07/23 0400 07/22 0400 Intake Total 480 Output Total Balance 480 Intake, IV 0 Intake, Oral 480 Number 0 Bowel Movements Patient 165 lb 165 lb Weight Physical Exam General Appearance: no apparent distress, alert, awake, comfortable, Intermittent belching Head: normal appearance Eyes: Bilateral: EOMI. Ears, Nose, Throat: normal ENT inspection, hearing grossly normal Respiratory: normal breath sounds, no respiratory distress, lungs clear Cardiovascular: regular rate/rhythm, normal peripheral pulses Gastrointestinal: normal bowel sounds, soft, non-tender Extremities: normal capillary refill, normal range of motion, no edema Neurologic/Psych: awake, oriented x 3, normal mood/affect Results Pertinent Lab Results: Laboratory Tests 07/24 07/24 07/23 07/23 0410 0410 2224 1604 Chemistry Sodium (137 - 145 mmol/L) 136 L 134 L Potassium (3.5 - 5.1 mmol/L) 4.5 4.1 Chloride (98 - 107 mmol/L) 100 99 Carbon Dioxide (22 - 30 mmol/L) 28 27 Anion Gap (5 - 16) 8 9 BUN (9 - 20 mg/dL) 6 L 8 L Creatinine (0.7 - 1.2 mg/dL) 0.6 L 0.5 L Estimated GFR (>60 ml/min) > 60 > 60 BUN/Creatinine Ratio (7 - 25 %) 10.0 16.0 Glucose (65 - 99 mg/dL) 143 H Calcium (8.4 - 10.2 mg/dL) 9.7 Total Bilirubin (0.2 - 1.3 mg/dL) 0.6 AST (17 - 59 U/L) 27 ALT (21 - 72 U/L) 58 Alkaline Phosphatase (< 127 U/L) 65 Troponin I (<0.11 ng/ml) 0.01 < 0.01 < 0.01 Total Protein (6.3 - 8.2 g/dL) 6.9 Albumin (3.5 - 5.0 g/dL) 4.1 Globulin (1.9 - 4.2 gm/dL) 2.8 Albumin/Globulin Ratio (1.1 - 2.2 %) 1.5 Hematology CBC w Diff NO MAN DIFF REQ WBC (4.8 - 10.8 /CUMM) 10.0 RBC (4.70 - 6.10 /CUMM) 4.54 L Hgb (14.0 - 18.0 G/DL) 14.5 Hct (42 - 52 %) 43.0 MCV (80.0 - 94.0 FL) 94.7 H MCH (27.0 - 31.0 PG) 32.0 H RDW (11.5 - 14.5 %) 12.7 Plt Count (130 - 400 /CUMM) 151 MPV (7.4 - 10.4 FL) 8.1 Gran % (42.2 - 75.2 %) 65.4 Lymphocytes % (20.5 - 51.1 %) 21.1 Monocytes % (1.7 - 9.3 %) 11.4 H Eosinophils % (0 - 5 %) 2.0 Basophils % (0.0 - 2.0 %) 0.1 Absolute Granulocytes (1.4 - 6.5 /CUMM) 6.6 H Absolute Lymphocytes (1.2 - 3.4 /CUMM) 2.1 Absolute Monocytes (0.10 - 0.60 /CUMM) 1.1 H Absolute Eosinophils (0.0 - 0.7 /CUMM) 0.2 Absolute Basophils (0.0 - 0.2 /CUMM) 0 PUBS MCHC (33.0 - 37.0 G/DL) 33.7 07/23 1521 Coagulation D-Dimer (70 - 232 ng/ml) < 200 Hematology CBC w Diff NO MAN DIFF REQ WBC (4.8 - 10.8 /CUMM) 9.1 RBC (4.70 - 6.10 /CUMM) 4.77 Hgb (14.0 - 18.0 G/DL) 15.2 Hct (42 - 52 %) 45.1 MCV (80.0 - 94.0 FL) 94.6 H MCH (27.0 - 31.0 PG) 31.9 H RDW (11.5 - 14.5 %) 12.9 Plt Count (130 - 400 /CUMM) 167 MPV (7.4 - 10.4 FL) 7.3 L Gran % (42.2 - 75.2 %) 67.2 Lymphocytes % (20.5 - 51.1 %) 18.5 L Monocytes % (1.7 - 9.3 %) 12.8 H Eosinophils % (0 - 5 %) 1.5 Basophils % (0.0 - 2.0 %) 0 L Absolute Granulocytes (1.4 - 6.5 /CUMM) 6.1 Absolute Lymphocytes (1.2 - 3.4 /CUMM) 1.7 Absolute Monocytes (0.10 - 0.60 /CUMM) 1.2 H Absolute Eosinophils (0.0 - 0.7 /CUMM) 0.1 Absolute Basophils (0.0 - 0.2 /CUMM) 0 PUBS MCHC (33.0 - 37.0 G/DL) 33.7 Assessment/Plan Assessment/Recommendations: 51-year-old gentleman with a PMH of type 2 DM, HTN, HLD, dysphagia with prior workup and imaging who presented with complaints of two-week duration pain with swallowing liquids and epigastric discomfort. Previous GI workup for dysphagia includes EGD on 12/24/2005 that showed proximal web/distal esophageal ring and circumferential erythema at 35 cm (segmental esophagitis), discharged home on a short course of Carafate and AcipHex. Repeat EGD on 05/26/2009 for similar complaints that showed white plaque in line with Sho esophagitis, erosive gastritis/duodenitis. Biopsies showed positive H. pylori for which she completed a course of antibiotics and was maintained on omeprazole. The patient returned on 08/06/2009 with recurrence of symptoms, underwent a repeat EGD that showed linear burrows in the lower esophagus consistent with eosinophilic esophagitis. Biopsies however returned negative for malignancy and eosinophilia. Postdischarge recommendations were for a follow-up manometry which he does report was performed at [facility] (results unavailable at this time). Most recently he endorses a 2 week duration of intermittent nearly daily episodes of substernal/epigastric burning sensation associated with drinking cold beverages, lasting a few seconds. He reports severe epigastric/substernal discomfort on Sunday07/23/2016, 12/14, nonradiating, no relief with Tums and sublingual NTG that lasted until arrival in the ED. Symptoms subsided S/P nitroglycerin patch. ROS: (+) Intermittent episodes of nausea over the past 2 weeks, dry cough mainly in the evening. (-) Fevers, chills, sore throat, metallic taste in his mouth, difficulty initiating swallowing, choking, abdominal pain/cramping, diarrhea/ bloody/black stools, fevers or chills. Patient is a daily smoker for the past 34 years, 0.5-1 pack per week. Daily alcohol use of 2 beers on average. 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 Problem list: 1. Dysphagia/odynophagia 2. Distal esophagus thickening on CT 3. Dry cough 4. Diabetes 5. Hypertension Recommendations: * DDX include achalasia, esophageal web, Mcknight's esophagus, GERD with esophagitis. Less likely at this time H. pylori * The patient will likely require repeat EGD with biopsies, possible follow-up manometry and esophageal pH monitor * Recommend starting antiacid and follow up with carafate 1 gram X1 if no improvement in epigastric discomfort * Start IV PPI BID * Regular diet till midnight, clear liquids from midnight till 1000AM, NPO after that for EGD tomorrow afternoon * The chronic dry cough despite discontinuation of losartan could be secondary to reflux stimulating the cough reflex. Start omeprazole BID 30-60 minutes before meals s/p EGD * Dietary recommendations on foods to avoid that can worsen LES tone: Caffeine, chocolate, spicy food, mint... * Depending on EGD findings, if evidence of sho esophagitis, consider immune deficiency workup including HIV * Obtain records from [facility] on previous manometry/pH monitor studies Problem List: 1. Dysphagia 2. Odynophagia 3. Epigastric abdominal pain 4. Type 2 diabetes mellitus 5. HTN (hypertension) Consult Acknowledgment - Thank you for your consult request. JORJE WILSON MD 07/24/16 4164: Addendum Note Addendum The patient was interviewed, examined and data reviewed. Agree with above resident history, physical examination, assessment and recommendations. The patient presents with recurrent lower chest discomfort, initially with the ingestion/swallowing of cold liquids, but now after eating, and with continuing substernal/epigastric burning and pain. CT scan suggests distal esophageal thickening. There is no sticking of food, or significant regurgitation. There has been no vomiting. The scenario likely is one of underlying esophagitis, with superimposed spasm/pain. The patient was evaluated in 2009 for similar symptoms, and details are unavailable (including manometry) aside from a relatively unrevealing EGD. He did have esophageal candidiasis. Recommendations * PPI IV twice a day * Antacids every 2 hours as needed. * Sucralfate suspension 1 g 4 times a day when necessary for break through; do not administer after 6 AM. * Clear liquid diet after midnight; nothing by mouth after 10 AM * EGD tomorrow * Further recommendations to follow the procedure Assessment/Plan Consult Acknowledgment - Thank you for your consult request.
[2016-07-24 16:07] VITALS: BP 130/82
--- NOTE | 2016-07-24 18:14 | Cons- Cardiology ---
General Information and HPI Consulting Request Date of Consult: 07/24/16 Requested By: ALISTAIR VALDIVIA PhD,MARIA ESTHER Isidro History of Present Illness: Romulo is a 51 year old male with history of hypertension, dyslipidemia, diabetes, tobacco abuse and esophageal stricture. He is s/p two esophageal dilitations in 2013 and has previously been treated for a Candidal esophagitis. He also carries a history of H. pylori infection. Yesterday, this patient awakened with a moderate substernal chest tightness that felt somewhat different from the discomfort he has had in the past from his esphageal issues. It is at times severe and is non-radiating. The discomfort has persisted continuously although with some waxing and wanning of its intensity. There is no exertional component to this discomfort but also no clear exacerbation with swallowing. He has mild shortness of breath, lightheadedness and palpitations. A NTG patch was possibly helpful. He does report some dysphagia after drinking liquids. The patient does drink alcohol. Prior cardiac workup included a stress test a few years ago that was reportedly within normal limits. Allergies/Medications Allergies: Coded Allergies: NO KNOWN ALLERGIES (07/23/16) Home Med List: Atorvastatin Calcium 40 MG TABLET 1 TAB PO DAILY CHOLESTEROL (Reported) Metformin HCl 850 MG TABLET 1 TAB PO DAILY DM (Reported) Telmisartan 20 MG TABLET 1 TAB PO DAILY HEART (Reported) Review of Systems Review of Systems: A twelve point review of systems is unremarkable. 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 Home Who Do You Live With? spouse Services at Home: None Smoking Status: Current Everyday Smoker ETOH Use: occasional use Illicit Drug Use: denies illicit drug use Living Will? no Functional Ability ADLs Independent: dressing, eating, toileting, bathing. Ambulation: independent IADLs Independent: shopping, housework, finances, food prep, telephone, transportation , medication admin. 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 & Diagnostic Data Vital Signs and I&O Vital Signs Date Time Temp Pulse Resp B/P Pulse O2 O2 Flow FiO2 Ox Delivery Rate 07/24 1607 98.4 76 20 130/82 98 Room Air 07/24 0800 Room Air 07/24 0700 98.7 76 16 142/80 98 Room Air 07/23 2345 98.8 79 18 138/84 97 Room Air 07/23 2330 Room Air 07/23 2253 97.8 07/23 2232 97.8 96 16 135/73 07/23 2224 97.8 96 16 135/73 95 Room Air 07/23 1959 105 16 132/84 98 Room Air Intake & Output 07/24 1600 07/24 0800 07/24 0000 07/23 1600 07/23 0800 07/23 0000 Intake Total 480 0 Output Total Balance 480 0 Intake, IV 0 Intake, Oral 480 0 Number 0 Bowel Movements Patient 165 lb 165 lb Weight Physical Exam: General: WD/ WN male in NAD; alert and oriented x 3 HEENT: NC/AT, PERRL, EOMI, clear oropharynx Neck: no JVD, no carotid bruit Heart: RRR w/o murmur Lungs: clear bilaterally Abdomen: soft, NT, +ve bowel sounds Extremities: no edema Assessment/Plan Assessment/Plan * This patient has copious risk factors for coronary artery disease including male gender, hypertension, dyslipidemia, tobacco abuse and diabetes. It is not surprising that his chest CT, that was done to assess for an aortic dissection, disclosed calcified coronaries consistent with coronary artery disease. Nevertheless, my strongest suspicion is that the patient's chest discomfort is related to an esophageal problem. We will obtain a GI consult and upper endoscopy is expected which is reasonable to pursue. * This patient has prolonged chest pain without any rise in cardiac enzymes or ECG changes. I has not had an ACS. Due to risk factors and coronary calcifications he will need to be risk stratified with a treadmill nuclear stress test due to his risk factors. We will also obtain an echocardigram. Consult Acknowledgment - Thank you for your consult request.
[2016-07-25 00:13] VITALS: BP 138/80
--- NOTE | 2016-07-25 07:15 | PN- Housestaff ---
Subjective Follow-up For: Chest pain Hiccups Dysphagia Complaints: reports continued having chest pain Tele-Events Since Last Visit: Sinus rhythm 70-77 bpm no overnight events Subjective: Review the patient lying comfortably he worked up from a deep sleep and was a little bit sweating. He denies any shortness of breath or palpitations overnight. His only concern is he has not been able to eat properly as he is experiencing difficult to swallow and sometimes when he drinks fluid it comes right back. Review of Systems Constitutional: Denies: chills, fever. Cardiovascular: Reports: see HPI, chest pain. Denies: palpitations. Respiratory: Denies: cough, short of breath. Gastrointestinal: Denies: abdominal pain, nausea, vomiting. Genitourinary: Denies: no symptoms. Musculoskeletal: Denies: no symptoms. Skin: Denies: no symptoms. Objective Last 24 Hrs of Vital Signs/I&O Vital Signs Date Time Temp Pulse Resp B/P Pulse O2 O2 Flow FiO2 Ox Delivery Rate 07/25 0013 98.1 72 20 138/80 97 Room Air 07/25 0000 98 07/24 1607 98.4 76 20 130/82 98 Room Air Intake & Output 07/25 1600 07/25 0800 07/25 0000 Intake Total 480 680 Output Total Balance 480 680 Intake, IV 20 Intake, Oral 480 660 Physical Exam General Appearance: Alert, Oriented X3, Cooperative, No Acute Distress Skin: No Rashes HEENT: Atraumatic, Mucous Membr. moist/pink Neck: Supple, No JVD Cardiovascular: Regular Rate, Normal S1, Normal S2, No Murmurs Lungs: Clear to Auscultation, Normal Air Movement Abdomen: Normal Bowel Sounds, Soft, No Tenderness Neurological: Normal Speech, Normal Tone Extremities: No Clubbing, No Cyanosis, No Edema Current Medications: Current Medications Sig/[place] Start time Last Medication Dose Route Stop Time Status Admin Acetaminophen 650 MG .STK-MED ONE 07/24 1055 DC PO 07/24 1056 Acetaminophen 650 MG Q6P PRN 07/23 2200 AC 07/24 PO 1110 Atorvastatin Calcium 40 MG DAILY 07/23 2153 AC 07/24 PO 1109 Calcium Carbonate 500 MG DAILY 07/24 1730 AC 07/24 PO 1817 Enoxaparin Sodium 40 MG DAILY 07/24 1000 AC 07/24 SC 1111 Insulin Aspart 0 TIDAC 07/24 0800 AC 07/24 SC 1817 Losartan Potassium 50 MG DAILY 07/23 2152 AC 07/23 PO 223 Morphine Sulfate 2 MG Q8P PRN 07/23 2199 AC IV Pantoprazole Sodium 40 MG BID 07/24 1730 AC 07/24 IV 181 Ramelteon 8 MG AT BEDTIME 07/24 2199 AC 07/24 PO 2041 Sucralfate 1,000 MG 4 TIMES/DAY 07/24 2199 DC 07/24 PO 07/24 Assessment/Plan Assessment: 51 y/o M with PMH of HTN, HLD, DMT2, longstanding esophagitis 2/2 GERD s/p several endoscopies (last in 2013 s/p dilatation of lower esophageal stricture) who presents to the ED with chest pain since 630AM the day of admission. He reports having a similar episode 3 years ago, for which he went to a PCP. He was asked to see a motor vehicle emissions inspector and underwent a stress test which was reportedly negative. Chest pain 2/2 Esophagitis vs ACS Patient has had 3 troponins which has been negative and there is no acute EKG changes to suggest ACS. Patient was seen by a paint and table edger yesterday he is on clear liquids this morning and will be nothing by mouth from 10 so that he can have EGD in the afternoon. Continue to follow up echocardiogram results. We have requested GI intervention records for procedures done at [place]. Patient continued to have chest pain despite PPI and almost no ulceration on upper EGD. Given his extensive cardiac risk we will make the patient full admission and do a cardiac stress test for risk stratification. Patient NPO from midnight for the procedure. Hypertension Patient has history of hypertension Started on home medication losartan 50 mg daily Overnight patient blood pressure has remained stable with systolic to 130 to 140 /80 Hyperlipidemia Patient has history of hyperlipidemia currently the patient is nothing by mouth when he starts taking his meals and give him heart health diet with low fats. Diabetes Patient started on insulin sliding scale Fingerstick for the past 24 hours 142, 136, 136, 254, 254, 254, 221 Will be put back on home dose of metformin upon discharge. Nicotine dependency Patient started on Wellbutrin SR 150MG daily for three days and then to adjust the dose to BID if he tolkerates well. Patient counselled to stop smoking. Problem List: 1. Epigastric abdominal pain 2. Dysphagia 3. Type 2 diabetes mellitus 4. HLD (hyperlipidemia) 5. HTN (hypertension) 6. Chest pain Pain Ratin Pain Location: Chest Pain Goal: Remain pain free Pain Plan: Pain pathway medications Tomorrow's Labs & Rationales: none needed DVT/Prophylaxis: mechanical, pharmacological Consulting Request: Consulting Specialty: Gastroenterology Consulting Physician: Dr. Medina Reason for Consult: Epigastric pain with hiccups and dysphagia
--- NOTE | 2016-07-25 08:04 | ECHOCARDIOGRAM REPORT ---
LISA MELISSA Age: 51 : 1965 Gender: M Exam Date: 07/24/2016 19:37 Exam Location: [address] [facility] Ht (in): 70 Wt (lb): 165 BSA: 1.93 BP: 142 / 80 Ordering Physician: BRADLEY MARKHAM MD Referring Physician: Luis E Streeter MD, PhD Technologist: Treva Sims [facility] Room Number: [id number] Indications: CHEST PAIN Rhythm: Sinus Technical Quality: good FINDINGS Left Ventricle Normal left ventricular size, wall thickness and systolic function with no obvious regional wall motion abnormalities. Normal left ventricular diastolic filling pattern for age. The ejection fraction is visually estimated at 60%. Right Ventricle The right ventricle is normal in size and function. Right Atrium The right atrium is normal in size. Left Atrium The left atrium is normal in size. The interatrial septum is intact. Mitral Valve The mitral valve is normal in structure and function. There is trace mitral regurgitation. Aortic Valve Mildly sclerotic aortic valve without significant stenosis. There is trace aortic regurgitation. Tricuspid Valve The tricuspid valve is normal in structure and function. There is no tricuspid regurgitation. Pulmonic Valve Structurally normal pulmonic valve. There is trace pulmonic regurgitation. Pericardium Normal pericardium without effusion. No pleural effusion. Great Vessels Normal aortic root dimension. The aortic arch and great vessels are well seen and are normal. CONCLUSIONS 1. Normal EF of 60%. 2. Trace mitral regurgitation. 3. Trace aortic regurgitation. with mild aortic sclerosis. 4. Trace pulmonic regurgitation. Luis E Streeter M.D. (Electronically Signed) Final Date: 25 July 2016 08:04 MEASUREMENTS (Male / Female) Normal Values 2D ECHO LV Diastolic Diameter PLAX 4.7 cm 4.2 - 5.9 / 3.9 - 5.3 cm LV Systolic Diameter PLAX 2.9 cm 2.1 - 4.0 cm LV Fractional Shortening PLAX 38.3 % 25 - 46 % LV Ejection Fraction 2D Teich 68.5 % IVS Diastolic Thickness 1.1 cm LVPW Diastolic Thickness 1.1 cm LV Relative Wall Thickness 0.5 RV Internal Dim ED PLAX 2.6 cm 1.9 - 3.8 cm LVOT Diameter 2.2 cm Aortic Root Diameter 2.9 cm LA Systolic Diameter LX 3.5 cm 3.0 - 4.0 / 2.7 - 3.8 cm LA Volume 27.0 cm 18 - 58 / 22 - 52 cm Ascending Aorta Diameter 3.0 cm DOPPLER AV Peak Velocity 186.0 cm/s AV Peak Gradient 13.8 mmHg AV Mean Velocity 135.0 cm/s AV Mean Gradient 8.0 mmHg AV Velocity Time Integral 34.9 cm LVOT Peak Velocity 104.0 cm/s LVOT Peak Gradient 4.3 mmHg LVOT Mean Velocity 67.3 cm/s LVOT Mean Gradient 2.0 mmHg LVOT Velocity Time Integral 18.8 cm LVOT Stroke Volume 71.5 cm AV Area Cont Eq vti 2.0 cm AV Area Cont Eq pk 2.1 cm MV Peak Velocity 107.0 cm/s MV Peak Gradient 4.6 mmHg MV Mean Velocity 67.0 cm/s MV Mean Gradient 2.0 mmHg Mitral E Point Velocity 97.7 cm/s Mitral A Point Velocity 97.7 cm/s Mitral E to A Ratio 1.0 MV PHT Velocity 112.0 cm/s MV Deceleration Gosper 537.0 cm/s MV Pressure Half Time 62.6 ms MV Area PHT 3.5 cm MV Deceleration Time 180.0 ms PV Peak Velocity 84.1 cm/s PV Peak Gradient 2.8 mmHg PV Mean Velocity 63.9 cm/s PV Mean Gradient 2.0 mmHg PV Velocity Time Integral 17.6 cm LV E' Lateral Velocity 10.2 cm/s Mitral E to LV E' Lateral Ratio 9.6 LV E' Septal Velocity 6.9 cm/s Mitral E to LV E' Septal Ratio 14.1
[2016-07-25 08:27] VITALS: BP 139/74
--- NOTE | 2016-07-25 09:48 | Proc Note Endoscopy ---
NUHA CLEMONS MD 07/25/16 0943: Endoscopy Procedure Medical History: unchanged (see meditech consult) Mental Status: alert/oriented Heart/Lung Eval Prior to Sedation: within normal limits Candidate for Sedation? Yes Procedure Date: 07/25/16 Procedure Type: EGD w/biopsy Optical Mechanic Apprentice: Nuha Clemons MD ASA Classification: III Indications: Dysphagia, atypical chest pain. Instrument: diagnostic gastroscope Meds Received: MAC Patient's Tolerance: good Complications: none Extent Reached: second part of duodenum Procedure: After getting written informed consent the patient was placed in the left lateral decubitus position with pulse oximetry, cardiac monitoring, and supplemental oxygen given. A bite block was inserted and IV sedation was given until the desired effect was achieved. A high definition upper Olympus endoscope was then inserted into the mouth and advanced to the second portion of the duodenum with little difficulty. Retroflexed views and photodocumentation was obtained. Findings: Esophagus: The esophageal mucosa was diffusely, mildly erythematous with some secretions throughout the esophagus that easily washed away and were not consistent with Kristy esophagitis. The Z line was located at 40 cm from the incisors and was moderately erythematous, but there were no ulcers, erosions, masses or long tongues of salmon-colored mucosa appreciated. Brushings were obtained with a cytology brush and sent for JOSE preparation and random biopsies were also obtained from the distal and proximal esophageal mucosa with cold biopsy forceps and were sent to pathology for further evaluation. Stomach: The gastric mucosa was grossly normal in appearance. There were no ulcers, erosions, or masses appreciated. Distention and peristalsis of the stomach appeared normal. Retroflexed views were normal and did not reveal a significant hiatal hernia. Random biopsies were obtained from the antrum with cold biopsy forceps and were sent to pathology for further evaluation. Duodenum: The duodenal bulb was mildly erythematous, but there were no erosions or ulcers appreciated. The duodenal sweep and folds were grossly normal in appearance. Impression: 1. Nonerosive reflux disease status post biopsies and brushings. 2. Nonerosive duodenitis status post antral biopsies. Recommendations: 1. His diet should be advanced as tolerated. 2. He should be started on an oral PPI twice a day for now. 3. He should follow up the pathology results with me as an outpatient. 4. He should follow an antireflux regimen. 5. He should avoid [id number] NSAIDs. 6. If his diet is able to be advanced and there are no other active issues consideration should be given to discharge the patient home later today to pursue further workup of his symptoms as an outpatient if they fail to improve with continued use of a ppi. CC: ALISTAIR VALDIVIA PhD,MARIA ESTHER Isidro; JEFFREY VALDIVIA,ROVERTO Monroy
[2016-07-25 10:47] VITALS: BP 140/86
[2016-07-25 16:27] VITALS: BP 133/82
--- NOTE | 2016-07-25 20:20 | PN- Cardiology ---
Subjective Subjective: * Patient complains of persistent chest discomfort. * endoscopy disclosed reflux and nonerosive duodenitis * Normal cardiac enzymes Objective Vital Signs and I&Os Vital Signs Date Time Temp Pulse Resp B/P Pulse O2 O2 Flow FiO2 Ox Delivery Rate 07/25 1627 98.6 61 16 133/82 96 Room Air 07/25 1047 97.8 78 16 140/86 95 Room Air 07/25 1032 78 140/86 07/25 0827 97.9 71 17 139/74 96 Room Air 07/25 0013 98.1 72 20 138/80 97 Room Air 07/25 0000 98 Intake & Output 07/25 1600 07/25 0800 07/25 0000 07/24 1600 07/24 0800 07/24 0000 Intake Total 500 480 680 480 0 Output Total Balance 500 480 680 480 0 Intake, IV 20 0 Intake, Oral 500 480 660 480 0 Number 0 Bowel Movements Patient 165 lb Weight Physical Exam: General: WD/ WN male in NAD; alert and oriented x 3 Neck: no JVD, no carotid bruit Heart: RRR w/o murmur Lungs: clear bilaterally Extremities: no edema Assessment/Plan Assessment/Plan * This patient continues to have persistent chest discomfort that waxes and wanes in intensity. In consideration of his copious risk factors for CAD, minimal findings of endoscopy and persistent pain we will pursue a treadmill nuclear stress test in the morning. * This patient has anxiety and would like to quit smoking. We will begin Wellbutryn. Continue telemetry? Yes
[2016-07-25 21:35] VITALS: BP 148/100
[2016-07-25 22:48] VITALS: BP 122/72
--- NOTE | 2016-07-26 07:32 | PN- Housestaff ---
Subjective Follow-up For: Dysphagia Chest discomfort Complaints: no complaints Tele-Events Since Last Visit: Sinus rhythm 66-79 bpm no overnight events Subjective: Reviewed the patient seated comfortably on the bed. The patient reports to have not slept well because the neighbor keep from going to his room and asking for his bed. He continues to have chest discomfort but denies any overt chest pain. He denies any shortness of breath or palpitations. Review of Systems Constitutional: Denies: chills, fever. Cardiovascular: Denies: chest pain, palpitations (chest discomfort). Respiratory: Denies: cough, short of breath. Gastrointestinal: Denies: nausea, vomiting. Genitourinary: Denies: no symptoms. Comments: All other systems reviewed and are negative Objective Last 24 Hrs of Vital Signs/I&O Vital Signs Date Time Temp Pulse Resp B/P Pulse O2 O2 Flow FiO2 Ox Delivery Rate 07/26 08 98.3 64 20 130/80 97 Room Air 07/25 2248 122/72 07/25 2135 98.1 70 16 148/100 97 Room Air 07/25 1627 98.6 61 16 133/82 96 Room Air 07/25 1047 97.8 78 16 140/86 95 Room Air Intake & Output 07/26 1600 07/26 0800 07/26 0000 Intake Total 720 Output Total Balance 720 Intake, Oral 720 Physical Exam General Appearance: Alert, Oriented X3, Cooperative, No Acute Distress Skin: No Rashes HEENT: Atraumatic, Mucous Membr. moist/pink Neck: Supple, No JVD Cardiovascular: Regular Rate, Normal S1, Normal S2 Lungs: Clear to Auscultation, Normal Air Movement Abdomen: Normal Bowel Sounds, Soft, No Tenderness Neurological: Normal Speech, Normal Tone Extremities: No Clubbing, No Cyanosis, No Edema Current Medications: Current Medications Sig/Daylin Start time Last Medication Dose Route Stop Time Status Admin Acetaminophen 650 MG Q6P PRN 07/23 2199 AC 07/24 PO 1110 Atorvastatin Calcium 40 MG DAILY 07/23 2153 AC 07/25 PO 1032 Benzocaine/Menthol 1 GISELA Q2P PRN 07/25 1845 AC 07/25 PO 2126 Bupropion HCl 100 MG BID 07/25 2200 CAN PO Bupropion HCl 150 MG DAILY 07/25 1515 AC 07/25 PO 1835 Calcium Carbonate 500 MG DAILY 07/24 1730 AC 07/25 PO 1035 Chlorhexidine 1 GM .STK-MED ONE 07/25 1308 DC Gluconate TOP 07/25 1309 Enoxaparin Sodium 40 MG DAILY 07/24 1000 AC 07/25 SC 1032 Fentanyl Citrate 1 MCG .STK-MED ONE 07/25 1504 DC IM 07/25 1505 Insulin Aspart 0 TIDAC 07/24 0800 AC 07/25 SC 1659 Losartan Potassium 50 MG DAILY 07/23 2153 AC 07/25 PO 1032 Morphine Sulfate 2 MG Q8P PRN 07/23 2200 AC IV Omeprazole 40 MG BID 07/25 2200 AC 07/25 PO 2125 Pantoprazole Sodium 40 MG BID 07/24 1730 DC 07/25 IV 1032 Patient Medication 1 ED ONE ONE 07/25 1400 DC Teaching ED 07/25 1401 Ramelteon 8 MG AT BEDTIME 07/24 2199 AC 07/25 PO 212 Sucralfate 1,000 MG 4 TIMES/DAY 07/25 1800 AC 07/25 PO 212 Assessment/Plan Assessment: 51 y/o M with PMH of HTN, HLD, DMT2, longstanding esophagitis 2/2 GERD s/p several endoscopies (last in 2013 s/p dilatation of lower esophageal stricture) who presents to the ED with chest pain since 630AM the day of admission. He reports having a similar episode 3 years ago, for which he went to a PCP. He was asked to see a deputy assessor and underwent a stress test which was reportedly negative. Chest pain 2/2 Esophagitis vs ACS Patient has had 3 troponins which has been negative and there is no acute EKG changes to suggest ACS. Patient was seen by a make ready worker yesterday he is on clear liquids this morning and will be nothing by mouth from 10 so that he can have EGD in the afternoon. Continue to follow up echocardiogram results. Patient continued to have chest discomfort despite PPI and almost no ulceration on upper EGD. Given his extensive cardiac risk the patient will have a treadmill stress test today. Hypertension Patient has history of hypertension Started on home medication losartan 50 mg daily Overnight patient blood pressure has remained stable. Hyperlipidemia Patient has history of hyperlipidemia currently the patient is nothing by mouth when he starts taking his meals and give him heart health diet with low fats. Diabetes Patient started on insulin sliding scale Fingerstick for the past 24 hours 159, 206, 206, 221, 2 tendon, 265, 190 Will be put back on home dose of metformin upon discharge. Nicotine dependency Patient started on Wellbutrin SR 150MG daily for three days and then to adjust the dose to BID if he tolerates well. Patient counselled to stop smoking. Problem List: 1. Epigastric abdominal pain 2. Dysphagia 3. Type 2 diabetes mellitus 4. HLD (hyperlipidemia) 5. HTN (hypertension) Pain Ratin Pain Location: none Pain Goal: Remain pain free Pain Plan: Tylenol when necessary Tomorrow's Labs & Rationales: No labs required Consulting Request: Consulting Specialty: Gastroenterology Consulting Physician: Dr. Medina Reason for Consult: Epigastric pain with hiccups and dysphagia Discharge Plan Discharge Disposition: home Stable for Discharge? No Anticipated Discharge (Day): tomorrow
[2016-07-26 08:00] VITALS: BP 130/80
--- NOTE | 2016-07-26 15:53 | Patient Discharge Instructions ---
Discharge Instructions General Discharge Information You were seen/treated for: Chest pain Special Instructions: Please call and make a follow-up with your primary care physician within one week after discharge. Please call and make a follow-up with your insurance associate Dr. Streeter within 1 week after discharge. Call and make a follow up with Dr. Clemons within one week after discharge Acute Coronary Syndrome Inclusion Criteria At DC or during hospital stay patient has or had the following: ACS DIAGNOSIS No Discharge Core Measures Meds if any: Prescribed or Continued at Discharge Meds if any: NOT Prescribed or Continued at Discharge Congestive Heart Failure Inclusion Criteria At DC or during hospital stay patient has or had the following: CHF DIAGNOSIS No Discharge Core Measures Meds if any: Prescribed or Continued at Discharge Meds if any: NOT Prescribed or Continued at Discharge Cerebrovascular accident Inclusion Criteria At DC or during hospital stay patient has or had the following: CVA/TIA Diagnosis No Discharge Core Measures Meds if any: Prescribed or Continued at Discharge Meds if any: NOT Prescribed or Continued at Discharge Venous thromboembolism Inclusion Criteria VTE Diagnosis No VTE Type NONE VTE Confirmed by (Test) NONE Discharge Core Measures - Per Current guidelines, there needs to be overlap - treatment for the first 5 days of Warfarin therapy. - If discharged on Warfarin prior to 5 days of - overlap therapy, the patient will need to be - assessed for post discharge needs including - *Post discharge parental anticoagulation - *Warfarin and/or parental anticoagulation education - *Follow up date to check INR post discharge At least 5 days overlap therapy as Inpatient No Meds if any: Prescribed or Continued at Discharge Note: Overlap Therapy is Warfarin and Anticoagulant Meds if any: NOT Prescribed or Continued at Discharge
--- NOTE | 2016-07-26 16:29 | Discharge Summary ---
Visit Information Visit Dates Admission Date: 07/25/16 Discharge Date: 07/26/16 Hospital Course Course Attending Physician: ALISTAIR VALDIVIA PhD,MARIA ESTHER Isidro Primary Care Physician: JEFFREY VALDIVIA,ROVERTO Monroy Consulting Request: Consulting Specialty: Gastroenterology Consulting Physician: Dr. Medina Reason for Consult: Epigastric pain with hiccups and dysphagia Hospital Course: 51 y/o M with PMH of HTN, HLD, DMT2, longstanding esophagitis 2/2 GERD s/p several endoscopies (last in 2013 s/p dilatation of lower esophageal stricture) who presents to the ED with chest pain since 630AM the day of admission. He reported having a similar episode 3 years ago, for which he went to a PCP. He was asked to see a electric meter tester shop and underwent a stress test which was reportedly negative. Chest pain 2/2 Esophagitis vs ACS Patient had 3 troponins which were negative and there was no acute EKG changes to suggest ACS. As a result of negative troponin the patient had an upper endoscope which did not show significant pathology to explain the chest pain. Given his extensive cardiovascular risk the patient had an inpatient treadmill stress test. The stress test was negative. Patient was started on PPIs and given instructions to follow-up with Dr. Clemons post discharge for follow-up of the upper EGD biopsy results and subsequent management. Hypertension Patient has history of hypertension Started on home medication losartan 50 mg daily Patient discharged home to continue with his home medication. Hyperlipidemia Patient has history of hyperlipidemia. He was restarted on his home anticholesterol medications. In the course of the stay he received heart health diet and discharged with instruction to continue taking anticholesterol medications. Diabetes Patient has history of diabetes for which she takes metformin at home. Per hospital protocol the patient was kept on insulin sliding scale and metformin held upon admission. Accu-Cheks showed good control of blood sugar. Patient will be discharged home on his home dose of metformin. Nicotine dependency Patient started on Wellbutrin SR 150MG daily for three days and then to adjust the dose to BID if he tolerates well. During the course of the stay the patient was counselled to stop smoking. Complications: None Allergies: Coded Allergies: NO KNOWN ALLERGIES (07/23/16) Significant Procedures: Upper endoscope Nonerosive reflux disease status post biopsies and brushings. Nonerosive duodenitis status post antral biopsies. Cardiac stress test Normal exercise stress and resting myocardial perfusion study with normal left ventricular wall motion and ejection fraction. Disposition Summary Disposition Principal Diagnosis: Chest pain Reflux esophagitis nonerosive Additional Diagnosis: Hypertension Nicotine dependence Diabetes mellitus Discharge Disposition: home or self care Discharge Instructions General Discharge Information Code Status: Full Code Patient's Diet: Diabetic diet Patient's Activity: As tolerated Follow-Up Instructions/Appts: Please call and make a follow-up with your GI Dr. Clemons within 1 week after discharge and it to follow-up for biopsy results of the upper endoscope sample. Please call and make a follow-up with her primary care physician within one week after discharge we started on Wellbutrin for nicotine dependence Medications at Discharge Discharge Medications: Continue taking these medications: Metformin HCl (Metformin HCl) 850 MG TABLET 1 Tablet ORAL DAILY Qty = 30 Comments: NOT GIVEN IN HOSPITAL Atorvastatin Calcium (Atorvastatin Calcium) 40 MG TABLET 1 Tablet ORAL DAILY Qty = 30 Comments: GIVNE 07/26/16 @ 3 PM Telmisartan (Telmisartan) 20 MG TABLET 1 Tablet ORAL DAILY Qty = 30 Comments: GIVEN [facility]. LAST GIVEN 07/26/16 @ 1500 Start taking the following new medications: Bupropion HCl (Bupropion HCl Sr) 150 MG TABLET.ER 150 Milligram ORAL DAILY Qty = 30 No Refills Comments: GIVEN 07/26/16 @ 3PM Omeprazole (Omeprazole) 20 MG CAPSULE.DR 40 Milligram ORAL TWICE DAILY Qty = 30 No Refills Comments: GIVEN 07/26/16 @ 3PM Copies To: CAROL VALDIVIA,BONNY MURPHY MD,ROVERTO Monroy
--- NOTE | 2016-07-26 17:11 | NUCLEAR MEDICINE REPORT ---
EXERCISE STRESS AND RESTING SPECT MYOCARDIAL PERFUSION IMAGING STUDY WITH GATED SPECT IMAGES: CLINICAL INDICATION: Chest pain, hypertension. PROCEDURE: Regional myocardial perfusion was assessed using a 1 day protocol. Stress images were obtained on 07/26/2016 following the intravenous administration of 21.2 mCi Tc 99m Myoview. Stress was performed using the standard Harmeet protocol, with the patient reaching a peak heart rate of 91% maximal predicted heart rate. Rest images were obtained 07/26/2016 following the intravenous administration of 31.2 mCi Technetium 99m Myoview. Single photon emission tomographic (SPECT) images were obtained. SPECT images were acquired in a 64 x 64 matrix of 64 projections over 180 degrees. These were reconstructed into standard short axis, horizontal and vertical long axis cardiac projections. FINDINGS: The post stress images demonstrate the left ventricular chamber to be normal in size. There is homogeneous distribution of activity in the left ventricular myocardium with no regions of abnormally decreased activity noted. The resting images also demonstrate homogeneous distribution of activity in the left ventricular myocardium, and are not significantly changed from the post stress images. The stress images were obtained using a gated SPECT technique, which permits visualization of wall motion and calculation of the left ventricular ejection fraction. No left ventricular wall motion abnormalities are noted on the stress study. The calculated left ventricular ejection fraction is 56% on the stress study. No previous study is available for comparison. IMPRESSION: Normal exercise stress and resting myocardial perfusion study with normal left ventricular wall motion and ejection fraction.
[2016-07-26 17:18] VITALS: BP 132/88
--- NOTE | 2016-07-26 17:48 | PN- Cardiology ---
Subjective Subjective: Mr. Simon is feeling unchanged. He has some mild residual nonexertional chest discomfort. Objective Vital Signs and I&Os Vital Signs Date Time Temp Pulse Resp B/P Pulse O2 O2 Flow FiO2 Ox Delivery Rate 07/26 1718 98.8 92 20 132/88 92 Room Air 07/26 1500 142/80 07/26 0800 98.3 64 20 130/80 97 Room Air 07/25 2248 122/72 07/25 2135 98.1 70 16 148/100 97 Room Air Intake & Output 07/26 1600 07/26 0800 07/26 0000 07/25 1600 07/25 0800 07/25 0000 Intake Total 720 500 480 680 Output Total Balance 720 500 480 680 Intake, IV 20 Intake, Oral 720 500 480 660 Physical Exam: Well-developed, well-nourished middle-aged male in no acute distress. Vital signs: See above. Lungs: Clear to auscultation bilaterally. Heart: S1, S2 with no murmur, gallop, or rub appreciated. PMI fifth ICS at MCL. Abdomen: Soft, nontender, positive bowel sounds. Extremities: No edema. Peripheral pulses: Symmetrical and intact. Current Medications: Current Medications Sig/Daylin Start time Last Medication Dose Route Stop Time Status Admin Acetaminophen 650 MG Q6P PRN 07/23 2199 AC 07/24 PO 1110 Atorvastatin Calcium 40 MG DAILY 07/23 2152 AC 07/26 PO 1500 Benzocaine/Menthol 1 GISELA Q2P PRN 07/25 1845 AC 07/25 PO 2126 Bupropion HCl 100 MG BID 07/25 2199 CAN PO Bupropion HCl 150 MG DAILY 07/25 1515 AC 07/26 PO 1500 Calcium Carbonate 500 MG DAILY 07/24 1730 AC 07/26 PO 1459 Enoxaparin Sodium 40 MG DAILY 07/24 1000 AC 07/26 SC 1501 Insulin Aspart 0 TIDAC 07/24 0800 AC 07/25 SC 1659 Losartan Potassium 50 MG DAILY 07/23 215 AC 07/26 PO 1500 Morphine Sulfate 2 MG Q8P PRN 07/23 2199 AC IV Omeprazole 40 MG BID 07/25 220 AC 07/26 PO 1500 Pantoprazole Sodium 40 MG BID 07/24 1730 DC 07/25 IV 1032 Ramelteon 8 MG AT BEDTIME 07/24 2199 AC 07/25 PO 2126 Sucralfate 1,000 MG 4 TIMES/DAY 07/25 1800 AC 07/26 PO 1500 Results Last 48 Hrs of Labs/Mics: Microbiology 07/25 0944 GI: JOSE Preparation - COMP Recent Imaging Studies: Nuclear treadmill stress test (07/26/2016) normal exercise stress and resting myocardial perfusion study with normal left ventricular wall motion and ejection fraction. Assessment/Plan Assessment/Plan Atypical chest discomfort for ischemic heart disease in this middle-aged male without evidence of myocardial necrosis by serial cardiac enzymes, acute electrocardiographic changes, and no evidence of ischemia on nuclear stress test imaging. Chest discomfort is most likely of a gastroenterologic etiology and would follow -up i\on GI recommendations including: advance diet as tolerated, start oral PPI twice daily for now, follow-up with GI regarding biopsy specimen results from EGD, follow antireflux regimen, avoid OTC NSAIDs, etc. The plan will be for discharge to home for further outpatient evaluation and management. Discharge instructions discussed with the house staff. Continue telemetry? No
[2016-07-26] MEDS ORDERED: BUPROPION HCL150 M4 PO (17:59)
[2016-07-26] MEDS ORDERED: OMEPRAZOLE20 M2 PO (18:01)
== END 2016-07-26 18:14 | DRG 313 ==
LOC: ENRESERVTM → ENRESERVDT → ERH 14:25 → 1NO 19:14 → ERHI 19:14 → CANBEDREQ 19:31 → 1NO 23:26 → ERHI 23:27 → 1NO 23:27 → ERHI 07-25 15:12 → 1NO 07-25 15:12
PROVIDERS: Internal Medicine; Physician Assistant; ADMIT Internal Medicine Interventional Cardiology
PROC: 0DB18ZX Excision of Upper Esophagus, Via Natural or Artificial Opening Endoscopic, Diagnostic (ICD-10-PCS; principal; 2016-07-25)
PROC: 0DB68ZX Excision of Stomach, Via Natural or Artificial Opening Endoscopic, Diagnostic (ICD-10-PCS; principal; 2016-07-25)
PROC: 0DB38ZX Excision of Lower Esophagus, Via Natural or Artificial Opening Endoscopic, Diagnostic (ICD-10-PCS; principal; 2016-07-25)
DX: R07.9 Chest pain, unspecified (principal); R13.10 Dysphagia, unspecified; I10 Essential (primary) hypertension; K29.80 Duodenitis without bleeding; E11.9 Type 2 diabetes mellitus without complications; E78.5 Hyperlipidemia, unspecified; F17.210 Nicotine dependence, cigarettes, uncomplicated; K21.0 Gastro-esophageal reflux disease with esophagitis; Z79.84 Long term (current) use of oral hypoglycemic drugs
CPT/HCPCS: 1NP; 6020; 78452; 82436; 88305; 88312; 93005; 93010; 93016; 93017; 93306; 96374; A9502; G0378; J1650; J2405; J3490